=== PATIENT | female | born 1980 ===

== ENCOUNTER 2021-07-13 08:06 | Emergency (ER) | payer BC ==
[2021-07-13] MEDS ORDERED: Aspirin 81 MG Tab.Chew PO ONE (08:13)
[2021-07-13 08:21] VITALS: BP 157/104; PULSE 98
[2021-07-13 08:44] LABS: ANION GAP 15.7 mEq/L (7-13); CHLORIDE,CL 104 mmol/L (98-107); SODIUM,NA 143 mmol/L (136-145)
--- NOTE | 2021-07-13 09:02 | CR ---
PROCEDURE INFORMATION: Exam: XR Chest Exam date and time: 07/13/2021 8:18 AM Age: 40 years old Clinical indication: Chest wall pain; Additional info: Chest pain TECHNIQUE: Imaging protocol: XR of the chest. Views: 1 view. COMPARISON: CR Chest 1V Frontal 12/28/2015 6:25 PM FINDINGS: Lungs: Unremarkable. No consolidation. Pleural spaces: Unremarkable. No pleural effusion. No pneumothorax. Heart/Mediastinum: Unremarkable. No cardiomegaly. Bones/joints: Unremarkable. IMPRESSION: No acute cardiopulmonary disease.
--- NOTE | 2021-07-13 09:10 | EDM.PDOC ---
ED HPI GENERAL MEDICAL PROBLEM - General Chief Complaint: Chest Pain Stated Complaint: CHEST PAIN Time Seen by Provider: 07/13/21 08:30 Source of Information: Reports: Patient History Limitations: Reports: No Limitations - History of Present Illness INITIAL COMMENTS - FREE TEXT/NARRATIVE: This 40 yo female patient reports to the ED due to substernal chest pain that radiated under her left breast and up to her left posterior shoulder. The patient reports her symptoms started about 25 minutes prior to her arrival in the ED and lasted about 15 minutes. The patient reports her symptoms have subsided by the time of assessment. The patient has a history of anxiety, elevated cholesterol levels and thyroid problems, but no personal cardiac history. The patient does report numerous family members with cardiac issues. Onset: Today Duration: Minutes: (25), Resolved Prior to Arrival Location: Reports: Chest Quality: Reports: Ache, Sharp, Stabbing Severity: Severe Improves with: Reports: Other Worsens with: Reports: None Context: Reports: Other Associated Symptoms: Reports: Chest Pain Treatments MOVEMENT THERAPIST: Reports: Aspirin (Given in ED by nursing staff) - Related Data Allergies Allergy/AdvReac Type Severity Reaction Status Date / Time No Known Allergies Allergy Verified 12/28/15 17:31 Home Meds: Home Meds Acetaminophen [Tylenol Extra Strength] 1,000 mg PO ASDIRECTED PRN 12/28/15 [History] Aspirin/Calcium Carbonate/Mag [Aspirin Buffered 325 mg Tab] 325 mg PO ASDIRECTED PRN 12/28/15 [History] Hydrocodone/Acetaminophen [Hydrocodon-Acetaminophen 5-325] 1 tab PO Q4HR PRN 12/28/15 [History] Ibuprofen 400 mg PO ASDIRECTED PRN 12/28/15 [History] atorvaSTATin Calcium [Atorvastatin Calcium] 10 mg PO DAILY 12/28/15 [History] Past Medical History HEENT History: Reports: None Cardiovascular History: Reports: High Cholesterol Respiratory History: Reports: None Gastrointestinal History: Reports: None Genitourinary History: Reports: None CREDIT VERIFIER History: Reports: None Musculoskeletal History: Reports: Fibromyalgia Neurological History: Reports: None Psychiatric History: Reports: None Endocrine/Metabolic History: Reports: None Hematologic History: Reports: None Immunologic History: Reports: None Oncologic (Cancer) History: Reports: None Dermatologic History: Reports: None - Infectious Disease History Infectious Disease History: Reports: Chicken Pox - Past Surgical History Female Surgical History: Reports: Other (See Below) Social & Family History - Family History Cardiac: Reports: Blood Clots/VTE/DVT - Caffeine Use Caffeine Use: Reports: Coffee - Sexual History Sexual History: Reports: Sexually Active - Living Situation & Occupation Living situation: Reports: , with Family Occupation: Employed ED ROS GENERAL - Review of Systems Review Of Systems: Comprehensive ROS is negative, except as noted in HPI. ED EXAM, GENERAL - Physical Exam Exam: See Below Exam Limited By: No Limitations General Appearance: Alert, WD/WN, Anxious, Moderate Distress Eye Exam: Bilateral Eye: EOMI, Normal Inspection, PERRL Ears: Normal External Exam, Normal Canal, Hearing Grossly Normal, Normal TMs Nose: Normal Inspection, Normal Mucosa, No Blood Throat/Mouth: Normal Inspection, Normal Lips, Normal Teeth, Normal Gums, Normal Oropharynx, Normal Voice, No Airway Compromise Head: Atraumatic, Normocephalic Neck: Normal Inspection, Supple, Non-Tender, Full Range of Motion Respiratory/Chest: No Respiratory Distress, Lungs Clear, Normal Breath Sounds, No Accessory Muscle Use, Chest Non-Tender Cardiovascular: Normal Peripheral Pulses, Regular Rate, Rhythm, No Edema, No Gallop, No JVD, No Murmur, No Rub GI/Abdominal: Normal Bowel Sounds (Female) Exam: Deferred Rectal (Female) Exam: Deferred Extremities: Normal Inspection, Normal Range of Motion, Non-Tender, No Pedal Edema, Normal Capillary Refill Neurological: Alert, Oriented, CN II-XII Intact, Normal Cognition, Normal Gait, No Motor/Sensory Deficits Psychiatric: Normal Affect, Anxious Skin Exam: Warm, Dry, Intact, Normal Color, No Rash Lymphatic: No Adenopathy Course - Vital Signs Last Recorded V/S: Last Vital Signs Temp 97.5 F 07/13/21 08:20 Pulse 98 07/13/21 08:20 Resp 22 H 07/13/21 08:20 BP 157/104 H 07/13/21 08:20 Pulse Ox 100 07/13/21 08:20 - Orders/Labs/Meds Orders: Active Orders 24 hr Category Date Time Status CULTURE BLOOD [BC] Stat Lab 07/13/21 08:26 Received Labs: Laboratory Tests 07/13/21 07/13/21 07/13/21 Range/Units 08:15 08:15 08:15 WBC 8.9 (5.0-10.0) 10^3/uL RBC 4.55 (4.2-5.4) 10^6/uL Hgb 14.5 D (12.0-16.0) g/dL Hct 42.2 (37.0-47.0) % MCV 92.7 (80-100) fL MCH 31.9 (27.0-34.0) pg MCHC 34.4 (33.0-35.0) g/dL Plt Count 299 (150-450) 10^3/uL Neut % (Auto) 74.3 (42.2-75.2) % Lymph % (Auto) 14.4 L (20.5-50.1) % [place] % (Auto) 6.9 (2-8) % Eos % (Auto) 3.9 H (1.0-3.0) % Baso % (Auto) 0.5 (0.0-1.0) % D-Dimer, Quantitative 351 (0-400) ng/mL Sodium 143 (136-145) mmol/L Potassium 3.7 (3.5-5.1) mmol/L Chloride 104 (98-107) mmol/L Carbon Dioxide 27 (21-32) mmol/L Anion Gap 15.7 H (7-13) mEq/L BUN 13 (7-18) mg/dL Creatinine 0.65 (0.55-1.02) mg/dL Est Cr Clr Drug Dosing 97.36 mL/min Estimated GFR (MDRD) > 60 BUN/Creatinine Ratio 20.0 (No establ ref range) Glucose 77 (70-99) mg/dL Lactic Acid (0.4-2.0) mmol/L Calcium 9.0 (8.5-10.1) mg/dL Total Bilirubin 0.9 (0.2-1.0) mg/dL AST 12 L (15-37) U/L ALT 28 (14-59) U/L Alkaline Phosphatase 167 H (46-116) U/L Troponin I High Sens < 4 (<=51) pg/mL Total Protein 7.2 (6.4-8.2) g/dL Albumin 3.7 (3.4-5.0) g/dL Globulin 3.5 Albumin/Globulin Ratio 1.1 07/13/21 07/13/21 Range/Units 08:26 10:14 WBC (5.0-10.0) 10^3/uL RBC (4.2-5.4) 10^6/uL Hgb (12.0-16.0) g/dL Hct (37.0-47.0) % MCV (80-100) fL MCH (27.0-34.0) pg MCHC (33.0-35.0) g/dL Plt Count (150-450) 10^3/uL Neut % (Auto) (42.2-75.2) % Lymph % (Auto) (20.5-50.1) % [place] % (Auto) (2-8) % Eos % (Auto) (1.0-3.0) % Baso % (Auto) (0.0-1.0) % D-Dimer, Quantitative (0-400) ng/mL Sodium (136-145) mmol/L Potassium (3.5-5.1) mmol/L Chloride (98-107) mmol/L Carbon Dioxide (21-32) mmol/L Anion Gap (7-13) mEq/L BUN (7-18) mg/dL Creatinine (0.55-1.02) mg/dL Est Cr Clr Drug Dosing mL/min Estimated GFR (MDRD) BUN/Creatinine Ratio (No establ ref range) Glucose (70-99) mg/dL Lactic Acid 0.6 (0.4-2.0) mmol/L Calcium (8.5-10.1) mg/dL Total Bilirubin (0.2-1.0) mg/dL AST (15-37) U/L ALT (14-59) U/L Alkaline Phosphatase (46-116) U/L Troponin I High Sens < 4 (<=51) pg/mL Total Protein (6.4-8.2) g/dL Albumin (3.4-5.0) g/dL Globulin Albumin/Globulin Ratio Meds: Medications Discontinued Medications Generic Name Dose Route Start Last Admin Trade Name Freq PRN Reason Stop Dose Admin Aspirin 324 mg 07/13/21 08:13 07/13/21 08:27 Aspirin 81 Mg Tab.Chew PO 07/13/21 08:14 324 mg ONETIME ONE Administration - Radiology Interpretation Free Text/Narrative:: [facility] Final Radiology Report Call: [phone] assistance Online chat: [email or web address] Name: GEGE FULLER Age: 40Years F Date: 07/13/2021 SSN: -- : 1980 Study: CR CHEST 1V FRONTAL Requesting Physician: Jim Mahmood Images: 1 Addl Studies: Provided Clinical History: chest pain Contrast: Contrast Medium: Contrast Amount: Contrast Method: CONFIDENTIALITY STATEMENT This report is intended only for use by the referring physician, and only in accordance with law. If you received this in error, call [phone]. Page 1 of 1 PROCEDURE INFORMATION: Exam: XR Chest Exam date and time: 07/13/2021 8:18 AM Age: 40 years old Clinical indication: Chest wall pain; Additional info: Chest pain TECHNIQUE: Imaging protocol: XR of the chest. Views: 1 view. COMPARISON: CR Chest 1V Frontal 12/28/2015 6:25 PM FINDINGS: Lungs: Unremarkable. No consolidation. Pleural spaces: Unremarkable. No pleural effusion. No pneumothorax. Heart/Mediastinum: Unremarkable. No cardiomegaly. Bones/joints: Unremarkable. IMPRESSION: No acute cardiopulmonary disease. Thank you for allowing us to participate in the care of your patient. Dictated and Authenticated by: Viet Galindo MD 07/13/2021 9:00 AM Central Time ([place] & [place]) - Re-Assessments/Exams Free Text/Narrative Re-Assessment/Exam: 07/13/21 09:11 The patient was advised of the examination, EKG, initial lab results and x-ray result during the visit. The patient was advised that a 2nd Troponin will be ordered (2 hours after the initial lab was drawn). The patient understood the results and assessment plan. Departure - Departure Time of Disposition: 10:52 Disposition: Home, Self-Care 01 Condition: Fair Clinical Impression: Nonspecific abdominal pain Instructions: Nonspecific Chest Pain, Adult, [id number] Forms: ED Department Discharge Care Plan Goals: The patient was advised of the examination, EKG, initial lab results, chest x- ray result and repeat lab results during the visit. The patient had no return of symptoms during the visit. If the patient has any additional symptoms or concerns, the patient should either return to the emergency department or visit her primary care facility. Sepsis Event Note (ED) - Focused Exam Vital Signs: Vital Signs Temp Pulse Resp BP Pulse Ox 07/13/21 08:20 97.5 F 98 22 H 157/104 H 100 - My Orders Last 24 Hours: My Active Orders 07/13/21 08:26 CULTURE BLOOD [BC] Stat - Assessment/Plan Last 24 Hours: My Active Orders 07/13/21 08:26 CULTURE BLOOD [BC] Stat
== END 2021-07-13 11:10 | disposition home or self-care (01) ==
LOC: DL.ED 08:06
DX: R10.9 Unspecified abdominal pain (principal); E78.00 Pure hypercholesterolemia, unspecified; Z79.899 Other long term (current) drug therapy
CPT/HCPCS: 36415; 71045; 80053; 83605; 84484; 85025; 85379; 87040; 93005; 99285-25; A9270-GY